=== PATIENT | female | born 1960 | race Caucasian/White ===

== ENCOUNTER 2019-10-11 06:00 | Outpatient (CLI) | payer OTHER, SELFPAY | END 2019-10-11 06:01 | LOC: GPT 10-12 10:31 | PROVIDERS: PCP Internal Medicine; Referring Provider Physician Assistant; Visit Provider Physician Assistant | DX: Z46.89 Encounter for fitting and adjustment of other specified devices (principal); S46.211D Strain of muscle, fascia and tendon of other parts of biceps, right arm, subsequent encounter; X58.XXXD Exposure to other specified factors, subsequent encounter | CPT/HCPCS: 97110; 97161 ==

== ENCOUNTER 2019-12-13 06:00 | Outpatient (RCR) | payer OTHER, SELFPAY | END 2019-12-18 23:59 | disposition home or self-care (01) | LOC: GPT 06:00 | PROVIDERS: PCP Internal Medicine; Referring Provider Physician Assistant; Visit Provider Physician Assistant | DX: Z98.890 Other specified postprocedural states (principal) | CPT/HCPCS: 97032; 97110; 97140; 97162; 97530 ==

== ENCOUNTER 2019-12-19 06:00 | Outpatient (RCR) | payer OTHER, SELFPAY | END 2020-01-17 23:59 | disposition home or self-care (01) | LOC: GPT 06:00 | PROVIDERS: PCP Internal Medicine; Referring Provider Physician Assistant; Visit Provider Physician Assistant | DX: Z98.890 Other specified postprocedural states (principal) | CPT/HCPCS: 97032; 97110; 97112; 97140; G0283 ==

== ENCOUNTER 2020-01-18 06:00 | Outpatient (RCR) | payer OTHER, SELFPAY | END 2020-02-17 23:59 | disposition home or self-care (01) | LOC: GPT 06:00 | PROVIDERS: PCP Internal Medicine; Referring Provider Physician Assistant; Visit Provider Physician Assistant | DX: Z47.89 Encounter for other orthopedic aftercare (principal); Z98.890 Other specified postprocedural states | CPT/HCPCS: 97110; 97140; 97164; 97530; G0283 ==

== ENCOUNTER 2021-01-16 06:00 | Outpatient (RCR) | payer OTHER, SELFPAY | END 2021-01-16 23:59 | disposition home or self-care (01) | LOC: GPT 06:00 | PROVIDERS: PCP Internal Medicine; Referring Provider Orthopaedic Surgery; Visit Provider Orthopaedic Surgery | DX: Z47.1 Aftercare following joint replacement surgery (principal); Z96.652 Presence of left artificial knee joint | CPT/HCPCS: 97110; 97161; 97530 ==

== ENCOUNTER 2021-01-17 14:40 | Outpatient (RCR) | payer OTHER, SELFPAY | END 2021-02-16 23:59 | disposition home or self-care (01) | LOC: GPT 14:40 | PROVIDERS: PCP Internal Medicine; Referring Provider Orthopaedic Surgery; Visit Provider Orthopaedic Surgery | DX: Z47.1 Aftercare following joint replacement surgery (principal); Z96.652 Presence of left artificial knee joint | CPT/HCPCS: 97110; 97116; 97140; 97164; 97530 ==

== ENCOUNTER 2021-02-17 06:00 | Outpatient (RCR) | payer OTHER, SELFPAY | END 2021-03-18 23:59 | disposition home or self-care (01) | LOC: GPT 06:00 | PROVIDERS: PCP Internal Medicine; Visit Provider Orthopaedic Surgery | DX: Z96.652 Presence of left artificial knee joint (principal) | CPT/HCPCS: 97110; 97112; 97140 ==

== ENCOUNTER 2021-03-19 06:00 | Outpatient (RCR) | payer OTHER, SELFPAY | END 2021-04-09 11:45 | disposition home or self-care (01) | LOC: GPT 06:00 | PROVIDERS: PCP Internal Medicine; Visit Provider Orthopaedic Surgery | DX: Z47.1 Aftercare following joint replacement surgery (principal); Z96.652 Presence of left artificial knee joint | CPT/HCPCS: 97110; 97140 ==

== ENCOUNTER 2021-07-16 06:00 | Outpatient (RCR) | payer OTHER, SELFPAY | END 2021-07-17 23:59 | disposition home or self-care (01) | LOC: GPT 06:00 | PROVIDERS: PCP Internal Medicine; Referring Provider Physician Assistant; Visit Provider Physician Assistant | DX: M51.36 Other intervertebral disc degeneration, lumbar region (principal) | CPT/HCPCS: 97110; 97162 ==

== ENCOUNTER 2021-07-18 06:00 | Outpatient (RCR) | payer OTHER, SELFPAY | END 2021-08-16 23:59 | disposition home or self-care (01) | LOC: GPT 06:00 | PROVIDERS: PCP Internal Medicine; Referring Provider Physician Assistant; Visit Provider Physician Assistant | DX: M51.36 Other intervertebral disc degeneration, lumbar region (principal) | CPT/HCPCS: 97110; 97112; 97140 ==

== ENCOUNTER 2021-09-23 06:00 | Outpatient (RCR) | payer OTHER, SELFPAY | END 2021-10-03 23:59 | disposition home or self-care (01) | LOC: GPT 06:00 | PROVIDERS: PCP Internal Medicine; Referring Provider Registered Nurse; Visit Provider Registered Nurse | DX: Z47.89 Encounter for other orthopedic aftercare (principal); Z98.1 Arthrodesis status | CPT/HCPCS: 97110; 97112; 97140; 97162; 97530 ==

== ENCOUNTER 2021-10-17 06:00 | Outpatient (RCR) | payer OTHER, SELFPAY | END 2021-11-16 23:59 | disposition home or self-care (01) | LOC: GPT 06:00 | PROVIDERS: PCP Internal Medicine; Visit Provider Registered Nurse | DX: M41.80 Other forms of scoliosis, site unspecified (principal) | CPT/HCPCS: 97110; 97140; 97164; 97530 ==

== ENCOUNTER 2021-11-17 06:00 | Outpatient (RCR) | payer OTHER, SELFPAY | END 2021-12-17 23:59 | disposition home or self-care (01) | LOC: GPT 06:00 | PROVIDERS: PCP Internal Medicine; Referring Provider Registered Nurse; Visit Provider Registered Nurse | DX: M41.80 Other forms of scoliosis, site unspecified (principal) | CPT/HCPCS: 97110; 97112; 97140; 97164; 97535 ==

== ENCOUNTER 2021-12-18 06:00 | Outpatient (RCR) | payer OTHER, SELFPAY | END 2022-01-16 23:59 | disposition home or self-care (01) | LOC: GPT 06:00 | PROVIDERS: PCP Internal Medicine; Referring Provider Registered Nurse; Visit Provider Registered Nurse | DX: M43.26 Fusion of spine, lumbar region (principal); M54.51 Vertebrogenic low back pain; Z48.89 Encounter for other specified surgical aftercare; M41.26 Other idiopathic scoliosis, lumbar region; M54.16 Radiculopathy, lumbar region | CPT/HCPCS: 97110; 97112; 97140; 97535 ==

== ENCOUNTER 2023-11-24 06:00 | Outpatient (RCR) | payer OTHER, SELFPAY | END 2023-12-18 23:59 | disposition home or self-care (01) | LOC: GPT 06:00 | PROVIDERS: Visit Provider Orthopaedic Surgery | DX: Z47.1 Aftercare following joint replacement surgery (principal); Z96.641 Presence of right artificial hip joint; M25.551 Pain in right hip; R26.2 Difficulty in walking, not elsewhere classified | CPT/HCPCS: 97110; 97112; 97140; 97161 ==

== ENCOUNTER 2023-12-19 06:00 | Outpatient (RCR) | payer OTHER, SELFPAY | END 2024-01-17 23:59 | disposition home or self-care (01) | LOC: GPT 06:00 | PROVIDERS: Visit Provider Orthopaedic Surgery | DX: Z47.1 Aftercare following joint replacement surgery (principal); Z96.641 Presence of right artificial hip joint; R53.1 Weakness | CPT/HCPCS: 97110; 97112; 97140 ==

== ENCOUNTER 2024-02-02 09:26 | Outpatient (CLI) | payer OTHER, SELFPAY ==
--- NOTE | 2024-02-02 09:20 | MM_ITS ---
WS: [id number] SCREENING DIGITAL BREAST TOMOSYNTHESIS MAMMOGRAM WITH CAD HISTORY: SCREENING COMPARISON: 10/13/2011 Bilateral CC and MLO with tomosynthesis and synthetic mammography submitted. Computer aided detection analyzed. Breast composition: There are scattered areas of fibroglandular density. Irregular mass with micro lo bulated margins and increased density middle depth 3:00 RIGHT breast needs additional evaluation Additional focal nodular asymmetry in the central LEFT breast needs to be further evaluated with lavinia tional views. MM/MM scr BI tomosynthesis 23705 IMPRESSION: BI-RADS: 0 - Incomplete: Need additional imaging evaluation. FOLLOW UP: Need Additional Imaging RIGHT breast: Spot compression views (CC and MLO). True ML. Ultrasound to follo w if abnormality persists. LEFT breast: Spot compression views (CC and MLO). True ML. Ultrasound to follow if abnormality persists.
== END 2024-02-02 09:27 | disposition home or self-care (01) ==
LOC: MOBLMAM 09:35
PROVIDERS: PCP Nurse Practitioner; Visit Provider Nurse Practitioner
DX: Z12.31 Encounter for screening mammogram for malignant neoplasm of breast (principal); R92.323 Mammographic fibroglandular density, bilateral breasts; N63.11 Unspecified lump in the right breast, upper outer quadrant; N64.89 Other specified disorders of breast
CPT/HCPCS: 77063; 77067